=== PATIENT | female | born 1940 | race Caucasian/White ===

== ENCOUNTER 2019-04-24 09:55 | Day surgery (SDC) | payer MEDICARE, BC ==
[2019-04-22 11:27] VITALS: BMI 48.3
[~2019-04-24 09:55] MED LIST: DEXAMETHASONE SOD PHOSPHATE 10 MG/ML 1 ML VIAL IV ONE; LACTATED RINGERS 1,000 ML IV SCH; LIDOCAINE 1% 20 ML VIAL (10MG/ML) FOR IV START INTRADERMA PRN; MIDAZOLAM 2 MG/2 ML VIAL IV PRN; fentaNYL (PF) 50 MCG/ML 2 ML AMP IV PRN
[2019-04-24 10:59] VITALS: TEMP 98.6
[2019-04-24 11:32] LABS: Glucose,Whole Blood 111 mg/dL (75-99)
[2019-04-24] MEDS ORDERED: GLUCAGON 1 MG/ML VIAL ONE (11:41)
[2019-04-24] MEDS ORDERED: PROPOFOL 10 MG/ML 20 ML VIAL IV ONE (11:41)
--- NOTE | 2019-04-24 11:42 | P.GSHP ---
History of Present Illness H&P Date: 04/24/19 Chief Complaint: GI bleed This is a 79-year-old female presents today for colonoscopy. Patient's had issues with rectal bleeding. Past Medical History Past Medical History: GERD/Reflux, Hyperlipidemia, Hypertension Additional Past Medical History / Comment(s): HEART MURMUR, NEUROPATHY LEGS AND FEET, ARTHRITIS PAIN ALL OVER. , ARTHRITIS KNEES WITH PAIN, USES WALKER., CHRONIC CONSTIPATION , BACK PAIN , GOUT., STAGE 2 KIDNEY DISEASE., SINUS PROBLEMS., HX OF UTI'S., RECENT BLOOD (RECTAL). History of Any Multi-Drug Resistant Organisms: None Reported Past Surgical History: Breast Surgery, Cholecystectomy, Hysterectomy Additional Past Surgical History / Comment(s): BREAST MASS, LISA FEET SURGERY, MULTIPLE SINUS SURGERIES., ABD.EXPLORATORY . Past Anesthesia/Blood Transfusion Reactions: No Reported Reaction Past Psychological History: Anxiety Smoking Status: Never smoker Past Alcohol Use History: None Reported Past Drug Use History: None Reported - Past Family History Father Additional Family Medical History / Comment(s): TUBERCULOSIS Medications and Allergies Home Medications Medication Instructions Recorded Confirmed Type ALPRAZolam [Xanax] 0.5 mg PO BID PRN 04/22/19 04/22/19 History Allopurinol [Zyloprim] 100 mg PO BID 04/22/19 04/24/19 History Cholecalciferol (Vitamin D3) 2,000 unit PO DAILY 04/22/19 04/22/19 History [Vitamin D3] Glimepiride [Amaryl] 1 mg PO Q48H 04/22/19 04/24/19 History L.acidoph,Paracasei, B.lactis 1 each PO DAILY 04/22/19 04/22/19 History [Probiotic] Levothyroxine Sodium [Synthroid] 75 mcg PO DAILY 04/22/19 04/22/19 History Lisinopril-Hctz 10-12.5 mg 1 tab PO HS 04/22/19 04/24/19 History [Zestoretic 10-12.5] Loratadine [Claritin] 10 mg PO DAILY 04/22/19 04/22/19 History Metoprolol Tartrate 25 mg PO DAILY 04/22/19 04/22/19 History Ranitidine HCl [Zantac] 75 mg PO BID 04/22/19 04/22/19 History traMADol HCL [Ultram] 50 mg PO Q6HR PRN 04/22/19 04/22/19 History Allergies Allergy/AdvReac Type Severity Reaction Status Date / Time codeine Allergy Unknown Itching Verified 04/22/19 10:42 IV CONTRAST DYE MRI Allergy Unknown Unknown Uncoded 04/22/19 10:42 Surgical - Exam Vital Signs Temp Pulse Resp BP Pulse Ox 98.6 F 70 18 145/65 97 04/24/19 10:57 04/24/19 10:57 04/24/19 10:57 04/24/19 10:57 04/24/19 10:57 - General well developed, well nourished, no distress - Eyes PERRL - ENT normal pinna - Neck no masses - Respiratory normal expansion - Cardiovascular Rhythm: regular - Abdomen Abdomen: soft, non tender Results - Labs Abnormal Lab Results - Last 24 Hours (Table) 04/24/19 Range/Units 11:14 POC Glucose (mg/dL) 111 H (75-99) mg/dL Assessment and Plan Assessment: GI bleed. We'll perform colonoscopy
--- NOTE | 2019-04-24 11:57 | P.OP ---
Date of Procedure: 04/24/19 Preoperative Diagnosis: GI bleed Postoperative Diagnosis: External hemorrhoids Mild diverticulosis Procedure(s) Performed: Colonoscopy Anesthesia: MAC Surgeon: Ken Beasley Pathology: none sent Condition: stable Disposition: PACU Description of Procedure: The patient was placed on the endoscopy table in the lateral position. She received IV sedation. Digital rectal exam was performed which revealed external hemorrhoids. The flexible colonoscope was then placed patient anus and passed throughout the colon. Ileocecal valve was not visualized secondary to tortuosity valve. Scope was withdrawn. The ascending colon appeared normal. The transverse colon appeared normal. The descending colon had a few scattered diverticula. Scope was then brought back and the sigmoid colon and a few scattered diverticuli were seen. Scope was then brought back the rectum and this appeared normal. Scope withdrawn for patient. There is no obvious source of bleeding. It was presumed patient is bleeding from external hemorrhoids.
[2019-04-24 12:20] VITALS: BP 129/73; PULSE 69; RESP 18
== END 2019-04-24 13:10 | disposition home or self-care (01) ==
LOC: ORWHC2ENDO 09:55
PROVIDERS: ATTEND Surgery
DX: K64.4 Residual hemorrhoidal skin tags (principal); K57.31 Diverticulosis of large intestine without perforation or abscess with bleeding; Q43.8 Other specified congenital malformations of intestine; K21.9 Gastro-esophageal reflux disease without esophagitis; E78.5 Hyperlipidemia, unspecified; I12.9 Hypertensive chronic kidney disease with stage 1 through stage 4 chronic kidney disease, or unspecified chronic kidney disease; R01.1 Cardiac murmur, unspecified; E11.42 Type 2 diabetes mellitus with diabetic polyneuropathy; M19.90 Unspecified osteoarthritis, unspecified site; M17.0 Bilateral primary osteoarthritis of knee; K59.09 Other constipation; M54.9 Dorsalgia, unspecified; M10.9 Gout, unspecified; E11.22 Type 2 diabetes mellitus with diabetic chronic kidney disease; N18.2 Chronic kidney disease, stage 2 (mild); J34.9 Unspecified disorder of nose and nasal sinuses; F41.9 Anxiety disorder, unspecified; E07.9 Disorder of thyroid, unspecified; E66.01 Morbid (severe) obesity due to excess calories; Z99.89 Dependence on other enabling machines and devices; Z87.440 Personal history of urinary (tract) infections; Z98.890 Other specified postprocedural states; Z90.49 Acquired absence of other specified parts of digestive tract; Z90.710 Acquired absence of both cervix and uterus; Z83.1 Family history of other infectious and parasitic diseases; Z79.899 Other long term (current) drug therapy; Z79.84 Long term (current) use of oral hypoglycemic drugs; Z79.890 Hormone replacement therapy; Z79.891 Long term (current) use of opiate analgesic; Z88.5 Allergy status to narcotic agent; Z91.041 Radiographic dye allergy status; Z68.42 Body mass index [BMI] 45.0-49.9, adult
CPT/HCPCS: 45378; J1610; J2704

== ENCOUNTER → 2021-02-12 | Outpatient (CLI) | payer MEDICARE, BC ==
--- NOTE | 2021-02-12 15:04 | XR ---
Right ankle HISTORY: Pain 3 views of the right ankle Postop change noted to the fifth metatarsal, is evidence of prior trauma, fracture with healing. Soft tissue swelling is present at the ankle. Question some irregularity the ankle mortise medially on th e frontal view. No dislocation. IMPRESSION: Difficult to exclude an osteochondral abnormality on the frontal view. There is soft tiss ue swelling. Postop change. Ankle MRI may be of benefit as indicated.
== END | disposition home or self-care (01) ==
LOC: RADXRYALE 13:50
PROVIDERS: ATTEND Internal Medicine
DX: M79.89 Other specified soft tissue disorders (principal); Z98.890 Other specified postprocedural states